=== PATIENT | female | born 1935 | race Hispanic/Latino ===

== ENCOUNTER 2019-08-21 15:04 | Observation (INO) | payer MEDICARE, OTHER ==
[~2019-08-21] VITALS: Ht 157.5 cm; Wt 65.3 kg
[~2019-08-21 15:04] MED LIST: AMLODIPINE BES2.5 MG PO; ASPIR 8181 MG PO; ATORVASTATIN CA80 MG PO; CIPRO500 MG PO; GLIMEPIRIDE2 MG PO; LEVEMIR100 UNIT/1 SQ; METFORMIN HCL500 MG PO
[2019-08-21 15:55] LABS: BASOPHILS # (AUTO) 0.1 (0.0-0.1); BASOPHILS % 0.5 % (0.0-1.0); EOSINOPHILS % 0.2 % (0.0-6.0); HEMATOCRIT 40.9 % (34.2-44.1); HEMOGLOBIN 13.1 g/dL (12.0-16.0); LYMPHOCYTES # (AUTO) 0.7 (1.0-3.2); LYMPHOCYTES % 4.4 % (18.0-39.1); MEAN CORPUSCULAR HEMOGLOBIN 29.7 pg (28-32); MEAN CORPUSCULAR VOLUME 92.7 fL (81-99); MONOCYTES # (AUTO) 0.8 (0.2-0.8); MONOCYTES % 5.2 % (4.4-11.3); NEUTROPHILS # (AUTO) 13.5 (2.1-6.9); NEUTROPHILS % 89.2 % (38.7-80.0); PLATELET COUNT 311 x10e3/uL (140-360); RED BLOOD COUNT 4.41 x10e6/uL (3.6-5.1); RED CELL DISTRIBUTION WIDTH 12.5 % (11.7-14.4)
--- NOTE | 2019-08-21 16:00 | NUR ---
Medications reconcilled and verified.
[2019-08-21 16:17] LABS: ALANINE AMINOTRANSFERASE 12 IU/L (0-55); ALBUMIN 3.4 g/dL (3.5-5.0); ALBUMIN/GLOBULIN RATIO 1.1 (0.8-2.0); ALKALINE PHOSPHATASE 115 IU/L (40-150); BLOOD UREA NITROGEN 20 mg/dL (7-26); BUN/CREATININE RATIO 21 (6-25); CALCIUM 8.7 mg/dL (8.4-10.2); CARBON DIOXIDE 25 mmol/L (22-29); CHLORIDE 109 mmol/L (98-107); CREATINE KINASE 45 IU/L (29-168); CREATININE, SERUM 0.94 mg/dL (0.57-1.11); EST GLOMERULAR FILTRATION RATE 57 ML/MIN (60-); GLUCOSE 134 mg/dL (74-118); SODIUM 142 mmol/L (136-145)
[2019-08-21] MEDS ORDERED: MIRTAZAPINE15 MG PO (16:27)
[2019-08-21] MEDS ORDERED: ARICEPT5 MG PO (16:27)
[2019-08-21] MEDS ORDERED: BENICAR20 MG PO (16:27)
--- NOTE | 2019-08-21 16:38 | Emergency Department Note ---
History of Present Illnes History of Present Illness Chief Complaint: General Medicine Complaints History of Present Illness This is a 84 year old female arrives to the ED secondary to low blood glucose, patient is oriented to self and place only. Unable to provide detailed history. . Chief Complaint Comment Per ems family called due to altered mental status upon arrival patient's blood sugar was 38 ems gave patient 2 g of glucagon in route which increased her glucose to 58 they then gave her 250 mL of D5 which inc reased her glucose to 183. EMS was told by family that patient may have took too much insulin. 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 Any updates have been documented here. 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 Past Surgical History: None Social History Smoking Cessation: Never Smoker Counseling Performed: No Alcohol Use: None Any Illegal Drug Use: No Other Last Tetanus: UNK Any Pre-Existing Lines (PICC,: No Review of Systems ROS Narrative Unable to obtain ROS: Unable to obtain due to, altered mental status Review of Systems Constitutional: Reports no symptoms EENTM: Reports no symptoms Cardiovascular: Reports no symptoms Respiratory: Reports no symptoms Gastrointestinal: Reports no symptoms Genitourinary: Reports no symptoms Musculoskeletal: Reports no symptoms Integumentary: Reports no symptoms Neurological: Reports no symptoms Psychological: Reports no symptoms Endocrine: Reports as per HPI Hematological/Lymphatic: Reports no symptoms Review of other systems: All other systems negative Physical Exam Related Data Allergies: Coded Allergies: No Known Allergies (Unverified , 05/17/14) Triage Vital Signs Vital Signs Date Time Temp Pulse Resp B/P (MAP) Pulse Ox O2 Delivery O2 Flow Rate FiO2 08/21/19 15:11 98.0 76 18 176/67 96 Room Air Vital signs reviewed: Yes Physical Exam CONSTITUTIONAL Constitutional: Present well-developed, Present well-nourished HENT HENT: Present normocephalic, Present atraumatic, Present oropharynx clear/mois t, Present nose normal HENT L/R: Present left ext ear normal, Present right ext ear normal EYES Eyes: Reports PERRL, Reports conjunctivae normal NECK Neck: Present ROM normal PULMONARY Pulmonary: Present effort normal, Present breath sounds normal CARDIOVASCULAR Cardiovascular: Present regular rhythm, Present heart sounds normal, Present capillary refill normal, Present normal rate GASTROINTESTINAL Abdominal: Present soft, Present nontender, Present bowel sounds normal GENITOURINARY Genitourinary: Present exam deferred SKIN Skin: Present warm, Present dry MUSCULOSKELETAL Musculoskeletal: Present ROM normal NEUROLOGICAL Neurological: Present alert, Present no gross motor or sensory deficits; Absent oriented x 3 PSYCHOLOGICAL Psychological: Present mood/affect normal, Present judgement normal Results Laboratory Result Diagram: 08/21/19 1542 08/21/19 1542 Laboratory Laboratory Tests Test 08/21/19 15:42 White Blood Count 15.09 x10e3/uL (4.8-10.8) Red Blood Count 4.41 x10e6/uL (3.6-5.1) Hemoglobin 13.1 g/dL (12.0-16.0) Hematocrit 40.9 % (34.2-44.1) Mean Corpuscular Volume 92.7 fL (81-99) Mean Corpuscular Hemoglobin 29.7 pg (28-32) Mean Corpuscular Hemoglobin Concent 32.0 g/dL (31-35) Red Cell Distribution Width 12.5 % (11.7-14.4) Platelet Count 311 x10e3/uL (140-360) Neutrophils (%) (Auto) 89.2 % (38.7-80.0) Lymphocytes (%) (Auto) 4.4 % (18.0-39.1) Monocytes (%) (Auto) 5.2 % (4.4-11.3) Eosinophils (%) (Auto) 0.2 % (0.0-6.0) Basophils (%) (Auto) 0.5 % (0.0-1.0) Neutrophils # (Auto) 13.5 (2.1-6.9) Lymphocytes # (Auto) 0.7 (1.0-3.2) Monocytes # (Auto) 0.8 (0.2-0.8) Eosinophils # (Auto) 0.0 (0.0-0.4) Basophils # (Auto) 0.1 (0.0-0.1) Absolute Immature Granulocyte (auto 0.07 x10e3/uL (0-0.1) Sodium Level 142 mmol/L (136-145) Potassium Level 4.0 mmol/L (3.5-5.1) Chloride Level 109 mmol/L (98-107) Carbon Dioxide Level 25 mmol/L (22-29) Anion Gap 12.0 mmol/L (8-16) Blood Urea Nitrogen 20 mg/dL (7-26) Creatinine 0.94 mg/dL (0.57-1.11) Estimat Glomerular Filtration Rate 57 ML/MIN (60-) BUN/Creatinine Ratio 21 (6-25) Glucose Level 134 mg/dL (74-118) Calcium Level 8.7 mg/dL (8.4-10.2) Total Bilirubin 0.3 mg/dL (0.2-1.2) Aspartate Amino Transf (AST/SGOT) 16 IU/L (5-34) Alanine Aminotransferase (ALT/SGPT) 12 IU/L (0-55) Alkaline Phosphatase 115 IU/L (40-150) Creatine Kinase 45 IU/L (29-168) Creatine Kinase MB 1.30 ng/mL (0-5.0) Troponin I < 0.001 ng/mL (0-0.300) Total Protein 6.4 g/dL (6.5-8.1) Albumin 3.4 g/dL (3.5-5.0) Globulin 3.0 g/dL (2.3-3.5) Albumin/Globulin Ratio 1.1 (0.8-2.0) Lab results reviewed: Yes Assessment & Plan Medical Decision Making MDM 84-year-old female arrives to the ED with low blood sugar, patient unable to provide history secondary to dementia, patient's blood sugar low upon EMS roll picker. Pt blood glucose fluctuated through out the ED. patient admitted for glucose monitoring. Assessment & Plan Final Impression: (1) Hypoglycemia Depart Disposition: ADMITTED Last Vital Signs Date Time Temp Pulse Resp B/P (MAP) Pulse Ox O2 Delivery O2 Flow Rate FiO2 08/21/19 15:11 98.0 76 18 176/67 96 Room Air Home Meds Active Scripts Ciprofloxacin Hcl (CIPRO) 500 Mg Tablet, 500 MG PO Q12H for 14 Days, TAB Prov:BRIGHT SINCLAIR 05/20/14 Reported Medications Mirtazapine (MIRTAZAPINE) 15 Mg Tab, 15 MG PO DAILY, TAB 08/21/19 Olmesartan Medoxomil (BENICAR) 20 Mg Tablet, 20 MG PO DAILY, #30 TAB 08/21/19 Donepezil Hcl (ARICEPT) 5 Mg Tablet, 5 MG PO HS, #30 TAB 08/21/19 Glimepiride (GLIMEPIRIDE) 2 Mg Tablet, 2 MG PO D, TAB 05/17/14 Atorvastatin Calcium (ATORVASTATIN CALCIUM) 80 Mg Tablet, 80 MG PO DAILY 05/17/14 Insulin Detemir (LEVEMIR) 100 Unit/1 Ml Vial, 30 UNITS SQ HS 05/17/14 Amlodipine Besylate (AMLODIPINE BESYLATE) 2.5 Mg Tablet, 2.5 MG PO DAILY 05/17/14 Aspirin (ASPIR 81) 81 Mg Tablet.dr, 81 MG PO DAILY 05/17/14 Metformin Hcl (METFORMIN HCL) 500 Mg Tablet, 1000 MG PO BID, #60 TAB 05/17/14 ALEXA CHANCE, Aug 21, 2019 16:38
--- NOTE | 2019-08-21 16:54 | NUR ---
food given to patient per MD permission. MD aware of repeat blood glucose.
[2019-08-21 17:12] LABS: BILIRUBIN,URINE NEGATIVE (NEGATIVE); CLARITY,URINE CLEAR (CLEAR); COLOR,URINE YELLOW (YELLOW); KETONES,URINE NEGATIVE (NEGATIVE); LEUKOCYTE ESTERASE ,URINE NEGATIVE (NEGATIVE); NITRITE,URINE NEGATIVE (NEGATIVE); PROTEIN,URINE DIPSTICK NEGATIVE (NEGATIVE); URINE UROBILINOGEN 0.2 mg/dL (0.2 - 1)
[2019-08-21 17:22] LABS: BACTERIA,URINE RARE /HPF; RENAL EPITHELIAL CELLS,URINE FEW
[2019-08-21 17:23] LABS: EPITHELIAL CELLS,URINE RARE /LPF
--- NOTE | 2019-08-21 19:20 | NUR ---
received report from day nurse. patient is resting comfortably in the bed. bed is in lowest position and call light is within reach. telemetry is attached. will continue to monitor patient.
[2019-08-21 20:00] VITALS: BP 169/86
[2019-08-21] MEDS ORDERED: NOVOLOG100 UNIT/1 SC (23:43)
[2019-08-21] MEDS ORDERED: MECLIZINE HCL12.5 MG PO (23:43)
[2019-08-22] VITALS: BP 152/70
[2019-08-22 04:00] VITALS: BP 142/66
[2019-08-22 06:19] LABS: BASOPHILS # (AUTO) 0.1 (0.0-0.1); BASOPHILS % 1.2 % (0.0-1.0); EOSINOPHILS # (AUTO) 0.1 (0.0-0.4); EOSINOPHILS % 0.8 % (0.0-6.0); HEMATOCRIT 39.4 % (34.2-44.1); HEMOGLOBIN 12.7 g/dL (12.0-16.0); LYMPHOCYTES # (AUTO) 1.9 (1.0-3.2); LYMPHOCYTES % 28.1 % (18.0-39.1); MEAN CORPUSCULAR HGB CONC 32.2 g/dL (31-35); MEAN CORPUSCULAR VOLUME 92.9 fL (81-99); MONOCYTES # (AUTO) 0.6 (0.2-0.8); NEUTROPHILS % 60.7 % (38.7-80.0); PLATELET COUNT 310 x10e3/uL (140-360); RED BLOOD COUNT 4.24 x10e6/uL (3.6-5.1); RED CELL DISTRIBUTION WIDTH 12.7 % (11.7-14.4)
[2019-08-22 06:38] LABS: ALBUMIN 3.3 g/dL (3.5-5.0); ALBUMIN/GLOBULIN RATIO 1.1 (0.8-2.0); ANION GAP 12.1 mmol/L (8-16); CALCIUM 8.9 mg/dL (8.4-10.2); CREATININE, SERUM 0.98 mg/dL (0.57-1.11); POTASSIUM 4.1 mmol/L (3.5-5.1)
--- NOTE | 2019-08-22 06:59 | NUR ---
report given t to day nurse. patient is resting comfortably in bed, bed is low position and call light is within reach.
[2019-08-22 08:34] VITALS: BP 139/67
[2019-08-22 09:37] VITALS: BP 139/67
[2019-08-22 11:54] VITALS: BP 153/75
--- NOTE | 2019-08-22 12:35 | NUR ---
PIV to right forearm discontinued. Catheter tip intact, no bleeding noted. Discharge instruction given to patient's daughter Zulema. Advised given to daughter to stop taking home medication glimepiride as instructed by Dr. Currie. Verbalized understanding. Prescription handed to the patient's spouse along with the discharge packet. All personal belongings are taken to private vehicle.
--- NOTE | 2019-08-22 12:39 | Discharge Summary ---
PRIMARY CARE PHYSICIAN: Ken Albarado MD CHIEF COMPLAINT: Hypoglycemia and leukocytosis. HISTORY OF PRESENT ILLNESS: The patient is an 84-year-old female, who both on Amaryl and Levemir insulin and also NovoLog, came into the hospital with hypoglycemia. The patient is otherwise stable. Hypoglycemia completely resolved. The patient is ambulatory. 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 The patient is on Aricept at night. The patient is stable, discharged home today. I will discontinue the Amaryl. The patient may continue with other insulin including Levemir and Humalog. The patient is otherwise stable. Discussed with the patient to follow up with her family physician, Dr. Ken Albarado, for adjustment of her medication. MD EVERTON Wise/MODL /[id number]
== END 2019-08-22 12:35 | disposition home or self-care (01) ==
LOC: ER 15:30 → ERHOLD 17:10 → MED/SURG2 18:24
PROVIDERS: ADMIT Internal Medicine; ATTEND Internal Medicine
DX: E11.649 Type 2 diabetes mellitus with hypoglycemia without coma (principal); F03.90 Unspecified dementia, unspecified severity, without behavioral disturbance, psychotic disturbance, mood disturbance, and anxiety; I10 Essential (primary) hypertension; E78.5 Hyperlipidemia, unspecified; Z79.4 Long term (current) use of insulin
CPT/HCPCS: 36415 ×2; 80053 ×2; 81001; 82550; 82553; 82948 ×2; 84484; 85025 ×2; 87635; 99284; G0378 ×2

== ENCOUNTER 2024-03-06 20:02 | Emergency (ER) | payer MEDICARE ==
[~2024-03-06] VITALS: Ht 157.5 cm; Wt 47.2 kg
[~2024-03-06 20:02] MED LIST changes: +ARICEPT5 MG PO; +BENICAR20 MG PO; +MECLIZINE HCL12.5 MG PO; +MIRTAZAPINE15 MG PO; +NOVOLOG100 UNIT/1 SC
[2024-03-06 20:27] VITALS: PULSE 88; RESP 18; TEMP 98.3; O2SAT 100
== END 2024-03-06 23:14 | disposition home or self-care (01) ==
LOC: ER 22:24
DX: S00.83XA Contusion of other part of head, initial encounter (principal); W01.0XXA Fall on same level from slipping, tripping and stumbling without subsequent striking against object, initial encounter; Y93.01 Activity, walking, marching and hiking; Y92.89 Other specified places as the place of occurrence of the external cause; F03.90 Unspecified dementia, unspecified severity, without behavioral disturbance, psychotic disturbance, mood disturbance, and anxiety; I10 Essential (primary) hypertension; E11.9 Type 2 diabetes mellitus without complications; E78.00 Pure hypercholesterolemia, unspecified
CPT/HCPCS: 70450; 70486; 72125; 99283